=== PATIENT | male | born 1935 | race Caucasian/White ===

== ENCOUNTER 2018-08-03 11:39 | Inpatient (IN) | payer OTHER ==
[~2018-08-03] VITALS: Ht 177.8 cm; Wt 79.8 kg
[~2018-08-03 11:39] MED LIST: ACET-1172 PO; ALBU2.5V7 INH; AMLO5TAB4 PO; CEL20 PO; CETI-101 PO; CITA40TA22 PO; DOCU-144 PO; DULO60CA41 PO; FINA5TAB3 PO; IPRA0.2S6 INH; LEVO50TA8 PO; METH20TA PO; METO25TA3 PO; PRO40 PO; TAMS-11 PO
[2018-08-03 11:44] VITALS: BP_SYST 150
[2018-08-03] MEDS ORDERED: ONDANSETRON HCL 4 MG/5 ML UDC PO ONE (13:30)
[2018-08-03] MEDS ORDERED: MORPHINE 4 MG/ML INJ. SYRINGE IVP ONE ×2 (13:30→15:30)
[2018-08-03 14:05] LABS: BASOPHILS % (AUTO) 0.3 % (0.0-2.0); EOSINOPHILS # (AUTO) 0.2 K/uL (0.0-0.4); EOSINOPHILS % (AUTO) 2.7 % (0.0-4.0); HEMATOCRIT 51.6 % (36-54); HEMOGLOBIN 17.1 g/dL (14.0-18.0); MEAN CORPUSCULAR HEMOGLOBIN 31 pg (27-31); MEAN CORPUSCULAR HGB CONC 33 % (32-36); MEAN CORPUSCULAR VOLUME 92 fL (79.0-98.0); MONOCYTES # (AUTO) 0.7 K/uL (0.0-1.0); NEUTROPHILS # (AUTO) 5.6 K/uL (1.8-7.7); PLATELET COUNT (AUTO) 162 K/uL (130-430); RED BLOOD CELL COUNT(AUTO) 5.63 MIL/uL (4.2-6.2); RED CELL DISTRIBUTION WIDTH 12.1 % (9.0-15.0); WHITE BLOOD COUNT (AUTO) 8.5 K/uL (4.8-10.8)
[2018-08-03 14:06] LABS: ANION GAP 0 (5-15); CALCIUM 9.5 mg/dL (8.4-11.0); CHLORIDE 99 mmol/L (98-107); CREATININE 1.04 mg/dL (0.55-1.30); GLUCOSE 94 mg/dL (70-99); POTASSIUM 4.8 mmol/L (3.5-5.1); SODIUM SERUM 131 mmol/L (136-145); UREA NITROGEN, BLOOD 17 mg/dL (8-21)
[2018-08-03 14:08] LABS: INR 1.1 (0.80-1.20); PROTHROMBIN TIME 10.7 SECS (9.5-12.5)
[2018-08-03 14:11] LABS: ALANINE AMINOTRANSFERASE 31 U/L (12-78); ALBUMIN 3.4 g/dL (3.4-4.8); ASPARTATE AMINOTRANSFERASE 23 U/L (10-37); TOTAL BILIRUBIN 0.5 mg/dL (0.0-1.0)
[2018-08-03 14:45] LABS: BILIRUBIN,URINE NEGATIVE (NEGATIVE); BLOOD, URINE NEGATIVE (NEGATIVE); CLARITY/URINE CLEAR (CLEAR); COLOR,URINE YELLOW (YELLOW); GLUCOSE,URINE NEGATIVE (NEGATIVE); KETONES,URINE NEGATIVE (NEGATIVE); LEUKOCYTE ESTERASE ,URINE NEGATIVE (NEGATIVE); NITRITE, URINE NEGATIVE (NEGATIVE); PROTEIN URINE NEGATIVE (NEGATIVE); UROBILINOGEN,URINE 0.2 (0.2-1.0)
[2018-08-03] MEDS ORDERED: fentaNYL CITRATE/PF 100 MCG/2 ML AMP IVP ONE (16:15)
[2018-08-03 16:57] VITALS: BP_SYST 162
[2018-08-03] MEDS ORDERED: ACETAMINOPHEN/CODEINE 300 MG-30 MG TABLET PO PRN (17:30)
[2018-08-03] MEDS ORDERED: cloNIDine HCL 0.1 MG TABLET PO PRN (17:30)
[2018-08-03] MEDS ORDERED: amLODIPine BESYLATE 10 MG TABLET PO ONE (17:30)
[2018-08-03] MEDS ORDERED: traMADol HCL HCL 50 MG TABLET (ULTRAM) PO PRN (18:30)
[2018-08-03 19:00] VITALS: BP_SYST 131
[2018-08-03] MEDS ORDERED: ASPIRIN 81 MG TAB.CHEW PO SCH (19:30)
[2018-08-03] MEDS ORDERED: TAMSULOSIN HCL 0.4 MG CAP PO SCH (19:30)
[2018-08-03 20:00] VITALS: BP_SYST 131
[2018-08-03] MEDS: DOCUSATE SODIUM 100 MG CAPSULE PO SCH (20:09)
[2018-08-03] MEDS: METOPROLOL SUCCINATE 25 MG TAB.SR.24H (TOPROL XL) PO SCH (20:10)
[2018-08-03] MEDS: MORPHINE 4 MG/ML INJ. SYRINGE IVP PRN (22:20)
[2018-08-04] MEDS: MORPHINE 4 MG/ML INJ. SYRINGE IVP PRN ×3 (02:11→10:35)
[2018-08-04 02:25] VITALS: BP_SYST 128
[2018-08-04] MEDS: LEVOTHYROXINE SODIUM 0.05 MG TABLET PO SCH (06:14)
[2018-08-04 08:00] VITALS: BP_SYST 160
[2018-08-04] MEDS: PANTOPRAZOLE SODIUM 40 MG TAB PO SCH (08:19)
[2018-08-04] MEDS: TAMSULOSIN HCL 0.4 MG CAP PO SCH (08:20)
[2018-08-04] MEDS: DOCUSATE SODIUM 100 MG CAPSULE PO SCH ×2 (08:20→22:03)
[2018-08-04] MEDS: FINASTERIDE 5 MG TABLET (PROSCAR) PO SCH (08:20)
[2018-08-04] MEDS: ATORVASTATIN 10 MG TABLET PO SCH (08:20)
[2018-08-04] MEDS: amLODIPine BESYLATE 10 MG TABLET PO SCH (08:21)
[2018-08-04] MEDS: METOPROLOL SUCCINATE 25 MG TAB.SR.24H (TOPROL XL) PO SCH ×2 (08:21→22:04)
[2018-08-04] MEDS: ENOXAPARIN SODIUM 40 MG/0.4 ML SYRINGE SUBCUT SCH (08:22)
[2018-08-04] MEDS: ASPIRIN 81 MG TAB.CHEW PO SCH (08:22)
[2018-08-04] MEDS ORDERED: DULoxetine HCL 30 MG CAPSULE.DR (CYMBALTA) PO SCH (09:00)
[2018-08-04] MEDS ORDERED: CITALOPRAM HYDROBROMIDE 20 MG TABLET PO SCH (09:00)
[2018-08-04] MEDS ORDERED: CYCLOBENZAPRINE HCL 10 MG TABLET (FLEXERIL) PO ONE (10:00)
[2018-08-04 12:00] VITALS: BP_SYST 139
[2018-08-04 16:00] VITALS: BP_SYST 117
[2018-08-04 20:12] VITALS: BP_SYST 119
[2018-08-04] MEDS: CYCLOBENZAPRINE HCL 10 MG TABLET (FLEXERIL) PO SCH (22:03)
[2018-08-05 03:56] VITALS: BP_SYST 122
[2018-08-05] MEDS: LEVOTHYROXINE SODIUM 0.05 MG TABLET PO SCH (06:03)
[2018-08-05 08:00] VITALS: BP_SYST 126
[2018-08-05] MEDS: amLODIPine BESYLATE 10 MG TABLET PO SCH (08:18)
[2018-08-05] MEDS: ATORVASTATIN 10 MG TABLET PO SCH (08:18)
[2018-08-05] MEDS: CYCLOBENZAPRINE HCL 10 MG TABLET (FLEXERIL) PO SCH ×2 (08:19→20:47)
[2018-08-05] MEDS: DOCUSATE SODIUM 100 MG CAPSULE PO SCH ×2 (08:19→20:47)
[2018-08-05] MEDS: PANTOPRAZOLE SODIUM 40 MG TAB PO SCH (08:19)
[2018-08-05] MEDS: TAMSULOSIN HCL 0.4 MG CAP PO SCH (08:19)
[2018-08-05] MEDS: ASPIRIN 81 MG TAB.CHEW PO SCH (08:19)
[2018-08-05] MEDS: METOPROLOL SUCCINATE 25 MG TAB.SR.24H (TOPROL XL) PO SCH ×2 (08:20→20:49)
[2018-08-05] MEDS: ENOXAPARIN SODIUM 40 MG/0.4 ML SYRINGE SUBCUT SCH (08:21)
[2018-08-05] MEDS: FINASTERIDE 5 MG TABLET (PROSCAR) PO SCH (08:26)
[2018-08-05 12:00] VITALS: BP_SYST 112
[2018-08-05 16:00] VITALS: BP_SYST 139
[2018-08-05] MEDS: MORPHINE 4 MG/ML INJ. SYRINGE IVP PRN (16:00)
[2018-08-05] MEDS ORDERED: BISACODYL 10 MG/SUPPOSITORY RC ONE (16:30)
[2018-08-05] MEDS ORDERED: SENNOSIDES 8.6 MG TABLET PO PRN (16:30)
[2018-08-05 20:00] VITALS: BP_SYST 118
[2018-08-06] MEDS: MORPHINE 4 MG/ML INJ. SYRINGE IVP PRN ×3 (00:11→16:26)
[2018-08-06 00:17] VITALS: BP_SYST 155
[2018-08-06] MEDS: LEVOTHYROXINE SODIUM 0.05 MG TABLET PO SCH (06:05)
[2018-08-06 08:07] VITALS: BP_SYST 135
[2018-08-06] MEDS: ASPIRIN 81 MG TAB.CHEW PO SCH (09:22)
[2018-08-06] MEDS: TAMSULOSIN HCL 0.4 MG CAP PO SCH (09:22)
[2018-08-06] MEDS: DOCUSATE SODIUM 100 MG CAPSULE PO SCH (09:22)
[2018-08-06] MEDS: PANTOPRAZOLE SODIUM 40 MG TAB PO SCH (09:23)
[2018-08-06] MEDS: ATORVASTATIN 10 MG TABLET PO SCH (09:23)
[2018-08-06] MEDS: METOPROLOL SUCCINATE 25 MG TAB.SR.24H (TOPROL XL) PO SCH (09:23)
[2018-08-06] MEDS: amLODIPine BESYLATE 10 MG TABLET PO SCH (09:23)
[2018-08-06] MEDS: CYCLOBENZAPRINE HCL 10 MG TABLET (FLEXERIL) PO SCH (09:23)
[2018-08-06] MEDS: FINASTERIDE 5 MG TABLET (PROSCAR) PO SCH (09:23)
[2018-08-06] MEDS: ENOXAPARIN SODIUM 40 MG/0.4 ML SYRINGE SUBCUT SCH (09:25)
[2018-08-06 12:39] VITALS: BP_SYST 141
[2018-08-06] MEDS ORDERED: BISACODYL 10 MG/SUPPOSITORY RC ONE ×2 (15:45→16:04)
[2018-08-06 16:38] VITALS: BP_SYST 141
== END 2018-08-06 17:10 | DRG 543 ==
LOC: SED 11:39 → STU 16:37 → MERGE 16:37 → STU 16:39
PROVIDERS: ADMIT Family Medicine; ATTEND Family Medicine
DX: M48.55XA Collapsed vertebra, not elsewhere classified, thoracolumbar region, initial encounter for fracture (principal); E87.1 Hypo-osmolality and hyponatremia; E03.9 Hypothyroidism, unspecified; I25.10 Atherosclerotic heart disease of native coronary artery without angina pectoris; I10 Essential (primary) hypertension; E78.5 Hyperlipidemia, unspecified; M81.0 Age-related osteoporosis without current pathological fracture; N40.0 Benign prostatic hyperplasia without lower urinary tract symptoms; G47.411 Narcolepsy with cataplexy; K21.9 Gastro-esophageal reflux disease without esophagitis; W17.89XA Other fall from one level to another, initial encounter; F32.9 Major depressive disorder, single episode, unspecified; M19.90 Unspecified osteoarthritis, unspecified site; M47.896 Other spondylosis, lumbar region; R29.6 Repeated falls; Z87.891 Personal history of nicotine dependence; Z91.81 History of falling; Z95.1 Presence of aortocoronary bypass graft; Y93.89 Activity, other specified; Y92.89 Other specified places as the place of occurrence of the external cause; Y99.8 Other external cause status
CPT/HCPCS: 36415; 72131; 80053; 81003; 85025; 85610-TC; 93005; 96374; 96375; 96376; 97110-GP; 97116-GP; 97530-GP; 99285; G0378; J1650; J2270; J3010; Q0162